=== PATIENT | male | born 2000 | race Asian ===

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

== ENCOUNTER → 2021-04-04 | Outpatient (CLI) | payer OTHER | END | disposition home or self-care (01) | LOC: MRI 10:43 | PROVIDERS: ATTEND Psychiatry & Neurology Neurology | DX: H53.9 Unspecified visual disturbance (principal) ==

== ENCOUNTER → 2021-05-20 | Outpatient (CLI) | payer OTHER ==
[2021-05-20 14:49] LABS: ALKALINE PHOSPHATASE 78 U/L (45-117); BUN 9 mg/dl (7-24); CHLORIDE 105 mmol/L (98-107); CREATININE 0.75 mg/dL (0.70-1.30); POTASSIUM 3.7 mmol/L (3.5-5.1); SGOT/AST 13 IU/L (3-35); SGPT/ALT 16 U/L (12-78); SODIUM 137 mmol/L (136-145); TOTAL PROTEIN 7.8 gm/dL (6.4-8.2)
[2021-05-20 14:51] LABS: FREE T4 0.99 ng/dl (0.76-1.46)
[2021-05-20 16:38] LABS: THYROID STIM HORMONE (HS) 0.613 uIU/ml (0.358-4.75)
[2021-05-21 08:08] LABS: RHEUMATOID ARTHRITIS FACTOR <10.0 IU/mL (<14.0)
[2021-05-21 15:07] LABS: ANTI-RNP ANTIBODIES <0.2 AI (0.0-0.9)
[2021-05-25 16:06] LABS: METHYLMALONIC ACID 174 nmol/L (0-378)
== END | disposition home or self-care (01) ==
LOC: LAB 13:58
PROVIDERS: ATTEND Physician Assistant Medical
DX: R20.2 Paresthesia of skin (principal)